=== PATIENT | male | born 1995 | race African-American/Black ===

== ENCOUNTER 2020-02-07 20:33 | Emergency (ER) | payer OTHER ==
[~2020-02-07] VITALS: Ht 175.3 cm; Wt 90.6 kg
[2020-02-07 20:34] VITALS: BP 125/86
== END 2020-02-07 22:41 | disposition home or self-care (01) ==
LOC: M ED 20:33
DX: S01.01XA Laceration without foreign body of scalp, initial encounter (principal); W25.XXXA Contact with sharp glass, initial encounter; Y92.019 Unspecified place in single-family (private) house as the place of occurrence of the external cause; Y93.9 Activity, unspecified

== ENCOUNTER 2020-02-17 07:55 | Emergency (ER) | payer OTHER ==
[~2020-02-17] VITALS: Ht 175.3 cm; Wt 90.1 kg
[2020-02-17 07:56] VITALS: BP 139/89
== END 2020-02-17 08:59 | disposition home or self-care (01) ==
LOC: M ED 07:55
DX: Z48.02 Encounter for removal of sutures (principal)

== ENCOUNTER 2020-10-07 12:59 | Emergency (ER) | payer OTHER ==
[~2020-10-07] VITALS: Ht 175.3 cm; Wt 89.3 kg
[2020-10-07] MEDS ORDERED: IBUPROFEN 800 MG TAB PO ONE (18:20)
[2020-10-07 19:05] VITALS: BP 142/92
== END 2020-10-07 19:08 | disposition home or self-care (01) ==
LOC: M ED 12:59
DX: J02.9 Acute pharyngitis, unspecified (principal)